=== PATIENT | female | born 1970 | race Caucasian/White ===

== ENCOUNTER 2025-03-03 07:59 | Emergency (ER) | payer BC ==
[~2025-03-03] VITALS: Ht 149.9 cm; Wt 46.7 kg
[2025-03-03 10:27] VITALS: BP 106/61; O2SAT 98
== END 2025-03-03 10:29 | disposition home or self-care (01) ==
LOC: ER 08:00
DX: H01.009 Unspecified blepharitis unspecified eye, unspecified eyelid (principal)